=== PATIENT | female | born 1990 | race Caucasian/White ===

== ENCOUNTER 2019-03-12 20:12 | Inpatient (IN) ==
[2019-03-12 17:42] LABS: Amphetamine Screen,Urine Negative ng/mL (Cutoff=1000); Barbiturate Screen,Urine Negative ng/mL (Cutoff=200); Benzodiazepines Screen,Urine Negative ng/mL (Cutoff=200); Cannabinoid Screen,Urine Negative ng/mL (Cutoff = 50); Cocaine Screen,Urine Negative ng/mL (Cutoff= 300); Opiate Screen,Urine Negative ng/mL (Cutoff=300); Phencyclidine Screen,Urine Negative ng/mL (Cutoff=25)
[2019-03-12 19:18] LABS: Basophils % 0.2 %; Eosinophils % 0.3 %; Hematocrit 35.1 % (35.3-44.9); Hemoglobin 12.1 g/dL (11.5-15.4); Immature Granulocytes % 0.4 % (0-4); Lymphocytes % 22.5 %; Mean Corpuscular HGB Conc 34.5 g/dL (31.6-35.5); Mean Corpuscular Hemoglobin 30.2 pg (28.0-33.3); Mean Corpuscular Volume 87.5 fL (83.0-100.0); Mean Platelet Volume 12.3 fL (9.4-12.4); Monocytes # 0.5 K/mcL (0.0-1.3); Monocytes % 5.1 %; Neutrophils # 6.4 K/mcL (1.6-8.9); Platelet Count 221 K/mcL (140-400); Red Blood Count 4.01 M/mcL (3.82-4.97); Red Cell Distribution Width 13.9 % (11.5-14.5); Segmented Neutrophils % 71.5 %
[~2019-03-12 20:12] MED LIST: *HR* Nalbuphine 10 MG/ML AMPUL IVP PRN; Epidural Premix (fent/bupiv) 110 ML EP SCH; Famotidine 20 MG/2 ML VIAL IVP PRN; Lidocaine 1% 20 ML MDV INFILT PRN; Metoclopramide 10 MG/2 ML VIAL IVP PRN; Naloxone 0.4 MG/ML INJ IVP PRN; Ondansetron 4 MG/2 ML VIAL IVP PRN; Ringers Solution, Lactated 1,000 ML IVC ONE; Ringers Solution, Lactated 1,000 ML IVC SCH
[2019-03-12 20:28] LABS: Bilirubin,Urine Negative (Negative); Blood,Urine Moderate (Negative); Clarity,Urine Turbid (Clear); Color,Urine Yellow (Yellow); Glucose,Urine (UA) Normal (Normal); Ketones,Urine Negative (Negative); Leukocyte Esterase,Urine Negative (Negative); Nitrite,Urine Negative (Negative); Protein,Urine 30 mg/dL (Neg-Trace); Specific Gravity,Urine 1.019 (1.010-1.025); Urobilinogen,Urine Normal (Normal)
[2019-03-12 20:30] LABS: Bacteria,Urine None Seen per hpf (None-Few); Hyaline Casts,Urine None Seen per lpf (None-Few); Squamous Epithelial Cell,Urine Many per lpf (None-Few); WBC,Urine 0-3 per hpf (0-3)
[2019-03-12 20:37] LABS: Protein/Creatinine Ratio,Urine 0.49 mg/mg (0.00-0.20)
[2019-03-12] MEDS ORDERED: D5% in Lactated Ringers 1,000 ML IVC SCH (20:45)
[2019-03-12] MEDS ORDERED: Amoxicillin 250 MG CHEWABLE TABLET PO SCH (21:00)
[2019-03-12 21:40] LABS: Alanine Aminotransferase 8 Units/L (7-52); Aspartate Amino Transferase 15 Units/L (13-39); BUN/Creatinine Ratio 20 (6-26); Blood Urea Nitrogen 10 mg/dL (6-20); Lactate Dehydrogenase 141 Units/L (140-271); eGFR For African Americans > 60 (> 60); eGFR For Non-African Americans > 60 (> 60)
[2019-03-12] MEDS ORDERED: Oxytocin 20 units/ LR 1000 mL 20 UNIT/1,000 ML BAG IVC ONE (23:28)
[2019-03-13] MEDS ORDERED: Ringers Solution, Lactated 1,000 ML ONE (01:38)
[2019-03-13] MEDS ORDERED: Oxytocin 20 units/ LR 1000 mL 20 UNIT/1,000 ML BAG IVC ONE (04:33)
[2019-03-13] MEDS ORDERED: Oxytocin 20 units/ LR 1000 mL 20 UNIT/1,000 ML BAG IVC SCH (05:40)
[2019-03-13] MEDS ORDERED: Measles/Mumps/Rubella Vacc 0.5 ML VIAL SQ PRN (05:40)
[2019-03-13] MEDS ORDERED: Ketorolac 30 MG/ML VIAL IVP SCH (06:00)
[2019-03-13] MEDS ORDERED: Acetaminophen 325 MG TABLET PO SCH (06:00)
[2019-03-13] MEDS: Prenatal Vit/FA 1 EACH TABLET PO SCH (07:40)
[2019-03-13] MEDS ORDERED: Ketorolac 30 MG/ML VIAL IVP PRN (08:17)
[2019-03-13] MEDS ORDERED: Acetaminophen 325 MG TABLET PO PRN (08:17)
[2019-03-13] MEDS: Ibuprofen 600 MG TABLET PO PRN ×2 (08:57→16:19)
[2019-03-13] MEDS: Amoxicillin 250 MG CHEWABLE TABLET PO SCH ×3 (08:58→21:17)
[2019-03-13] MEDS ORDERED: Ibuprofen 600 MG TABLET PO SCH (23:59)
[2019-03-14] MEDS: Ibuprofen 600 MG TABLET PO PRN (07:24)
[2019-03-14] MEDS: Prenatal Vit/FA 1 EACH TABLET PO SCH (08:00)
[2019-03-14] MEDS: Amoxicillin 250 MG CHEWABLE TABLET PO SCH (08:01)
[2019-03-14 09:17] VITALS: BP 134/91
== END 2019-03-14 12:00 | disposition home or self-care (01) | DRG 807 ==
LOC: 1NENULAB → 1NENUOBS 03-13 05:40
PROVIDERS: ADMIT Advanced Practice Midwife; ATTEND Advanced Practice Midwife